=== PATIENT | female | born 1990 | race Hispanic/Latino ===

== ENCOUNTER 2018-01-04 12:59 | Emergency (ER) | payer OTHER ==
[2018-01-04 13:14] VITALS: BP 127/79; PULSE 87; RESP 18; TEMP 97.7; O2SAT 98
[2018-01-04 15:29] LABS: BASO # 0.1 K/uL (0.0-0.2); BASO % 0.7 % (0.0-2.0); EOS # 0.1 K/uL (0.0-0.7); EOS % 0.8 % (0.0-4.0); HEMOGLOBIN 14.7 g/dL (12.0-16.0); LYMPH # 2.9 K/uL (1.0-4.3); LYMPH % 32.2 % (20.0-40.0); MEAN CORPUSCULAR HEMOGLOBIN 31.5 pg (27.0-31.0); MEAN CORPUSCULAR HGB CONC 33.9 g/dL (33.0-37.0); MEAN PLATELET VOLUME 8.8 fl (7.2-11.7); MONO # 1.1 K/uL (0.0-0.8); MONO % 11.5 % (0.0-10.0); NEUT % 54.8 % (50.0-75.0); NRBC % 0.2 % (0.0-0.0); RBC 4.67 Mil/uL (3.80-5.20); RED CELL DISTRIBUTION WIDTH 12.6 % (11.5-14.5); WHITE BLOOD COUNT 9.1 K/uL (4.8-10.8)
--- NOTE | 2018-01-04 15:46 | ED PDOC ---
HPI: Abdomen Time Seen by Provider: 01/04/18 13:46 Chief Complaint (Nursing): Female Genitourinary Chief Complaint (Provider): pelvic pain History Per: Patient History/Exam Limitations: no limitations Onset/Duration Of Symptoms: Intermittent Episodes (x2 weeks) Current Symptoms Are (Timing): Still Present Additional Complaint(s): 27 year old female presents to the emergency department with a complaint of left -sided abdominal pain that comes and goes for the last 2 weeks. She denied any vaginal discharge or bleeding. Patient stated that she is currently sexually active with a normal menstrual period 3 weeks ago. PMD: none provided Past Medical History Reviewed: Historical Data, Nursing Documentation, Vital Signs Vital Signs: Last Vital Signs Temp 97.7 F 01/04/18 13:10 Pulse 87 01/04/18 13:10 Resp 18 01/04/18 13:10 BP 127/79 01/04/18 13:10 Pulse Ox 98 01/04/18 16:51 - Medical History PMH: No Chronic Diseases - Surgical History Surgical History: No Surg Hx - Family History Family History: States: Unknown Family Hx - Social History Current smoker - smoking cessation education provided: No Ex-Smoker (has not smoked in the last 12 months): No Alcohol: None Drugs: Denies - Allergies Allergies/Adverse Reactions: Allergies Allergy/AdvReac Type Severity Reaction Status Date / Time No Known Allergies Allergy Verified 01/04/18 13:09 Review of Systems ROS Statement: Except As Marked, All Systems Reviewed And Found Negative Genitourinary Female: Positive for: Pelvic Pain (left-sided). Negative for: Vaginal Discharge, Vaginal Bleeding Physical Exam - Reviewed Nursing Documentation Reviewed: Yes Vital Signs Reviewed: Yes - Physical Exam Appears: Positive for: Well, Non-toxic, No Acute Distress Head Exam: Positive for: ATRAUMATIC, NORMAL INSPECTION, NORMOCEPHALIC Skin: Positive for: Normal Color Eye Exam: Positive for: Normal appearance, EOMI ENT: Positive for: Normal ENT Inspection Neck: Positive for: Normal Cardiovascular/Chest: Positive for: Regular Rate, Rhythm Respiratory: Positive for: Normal Breath Sounds. Negative for: Decreased Breath Sounds, Respiratory Distress Gastrointestinal/Abdominal: Positive for: Normal Exam, Soft. Negative for: Tenderness, Mass Back: Positive for: Normal Inspection. Negative for: L CVA Tenderness, R CVA Tenderness Extremity: Positive for: Normal ROM (upper/lower) Neurologic/Psych: Positive for: Alert (x3), Oriented - Laboratory Results Result Diagrams: 01/04/18 15:15 01/04/18 15:15 - ECG O2 Sat by Pulse Oximetry: 98 (RA) Pulse Ox Interpretation: Normal - Progress Re-evaluation Time: 16:50 Condition: Re-examined, Improved Medical Decision Making Medical Decision Making: Initial Impression: Left pelvic pain Differential Diagnosis: Ovarian cyst; ovarian torsion; fibroids; UTI Initial Plan: * BMP * Urine * Urine dipstick * CBC * US pelvis/transvaginal Time: 1525 --Urine: negative for Time: 1639 US Pelvis/Transvaginal FINDINGS: UTERUS: Measures 8.0 x 3.6 x 4.3 cm. Normal in size and appearance. No fibroid or other mass lesion seen. ENDOMETRIUM: Measures 12.0 mm in diameter. Unremarkable. CERVIX: No cervical abnormality identified. RIGHT OVARY: Measures 3.0 x 1.7 x 2.1 cm. No solid mass. Normal flow. Normal appearing follicles are identified scattered. LEFT OVARY: Measures 2141.2 x 2.5 cm. No solid mass. Normal flow. Normal appearing follicles are identified scattered. FREE FLUID: A mild amount of fluid is seen the cul-de-sac posteriorly which is anechoic and may be physiologic. OTHER FINDINGS: None. IMPRESSION: Unremarkable uterus and bilateral ovaries with a limited amount of fluid identified in the cul-de-sac which may be physiologic. Labs reviewed and are within normal limits. Patient with a normal ultrasound. Stable for discharge home. Scribe Attestation: Documented by Carolina Alvarez, acting as a scribe for Warren Fernandez MD. Provider Scribe Attestation: All medical record entries made by the Scribe were at my direction and personally dictated by me. I have reviewed the chart and agree that the record accurately reflects my personal performance of the history, physical exam, medical decision making, and the department course for this patient. I have also personally directed, reviewed, and agree with the discharge instructions and disposition. Disposition - Clinical Impression Clinical Impression: Pelvic pain - Disposition Referrals: [facility] [Outside] Disposition: Routine/Home Disposition Time: 16:51 Condition: GOOD Additional Instructions: Take motrin for pain. Follow up with your PCP in 2-3 days. Return for worsening or persistent pain. Instructions: Acute Pelvic Pain (DC)
[2018-01-04 15:52] LABS: BLOOD UREA NITROGEN 11 mg/dl (7-17); CALCIUM 10.3 mg/dL (8.4-10.2); GFR AFRICAN-AMERICAN > 60; GFR NON-AFRICAN AMERICAN > 60
--- NOTE | 2018-01-04 16:40 | US ---
HISTORY: left pelvic pain COMPARISON: None available. TECHNIQUE: Transabdominal and transvaginal pelvic ultrasound was performed with longitudinal and transverse images submitted for interpretation. FINDINGS: UTERUS: Measures 8.0 x 3.6 x 4.3 cm. Normal in size and appearance. No fibroid or other mass lesion seen. ENDOMETRIUM: Measures 12.0 mm in diameter. Unremarkable. CERVIX: No cervical abnormality identified. RIGHT OVARY: Measures 3.0 x 1.7 x 2.1 cm. No solid mass. Normal flow. Normal appearing follicles are identified scattered. LEFT OVARY: Measures 2141.2 x 2.5 cm. No solid mass. Normal flow. Normal appearing follicles are identified scattered. FREE FLUID: A mild amount of fluid is seen the cul-de-sac posteriorly which is anechoic and may be physiologic. OTHER FINDINGS: None. IMPRESSION: Unremarkable uterus and bilateral ovaries with a limited amount of fluid identified in the cul-de-sac which may be physiologic.
== END 2018-01-04 16:53 | disposition home or self-care (01) ==
LOC: H.ER 12:59
DX: R10.2 Pelvic and perineal pain (principal)